=== PATIENT | female | born 1965 | race Hispanic/Latino ===

== ENCOUNTER → 2019-11-30 | Outpatient (CLI) | payer OTHER | END | disposition home or self-care (01) | LOC: OIH 13:57 | PROVIDERS: ATTEND Internal Medicine Cardiovascular Disease | DX: Z13.6 Encounter for screening for cardiovascular disorders (principal) | CPT/HCPCS: 75571 ==

== ENCOUNTER → 2020-01-03 | Outpatient (CLI) | payer BC | END | disposition home or self-care (01) | LOC: SHCH 08:50 | PROVIDERS: ATTEND Internal Medicine Cardiovascular Disease | DX: I42.0 Dilated cardiomyopathy (principal) | CPT/HCPCS: 93306 ==

== ENCOUNTER → 2024-01-20 | Outpatient (CLI) | payer BC | END | disposition home or self-care (01) | LOC: RAH 14:22 | PROVIDERS: ATTEND Family Medicine | DX: D17.71 Benign lipomatous neoplasm of kidney (principal); R31.9 Hematuria, unspecified; N94.89 Other specified conditions associated with female genital organs and menstrual cycle | CPT/HCPCS: 76770 ==